=== PATIENT | female | born 1955 | race Caucasian/White ===

== ENCOUNTER 2020-09-09 13:24 | Inpatient (IN) | payer MEDICARE ==
[~2020-09-09] VITALS: Ht 157.5 cm; Wt 52.6 kg
[~2020-09-09 13:24] MED LIST: AVELOX400 MG PO; FLONASE0.05 MG/AC NS; LORTAB 5/500 501 TAB; SUDAFED30 MG PO
[2020-09-09] MEDS ORDERED: FOSAMAX5 MG PO (14:54)
[2020-09-09] MEDS ORDERED: OMEGA-3 1000 MG1 CAP PO (14:55)
[2020-09-09] MEDS ORDERED: VICODIN 5/300 PO (14:56)
[2020-09-09] MEDS ORDERED: LIPITOR 10MG10 MG PO (14:59)
[2020-09-09] MEDS ORDERED: ONE-A-DAY ESSE1 EACH PO (15:01)
[2020-09-09] MEDS ORDERED: CALCIUM CARBON650 M2 PO (15:03)
[2020-09-09] MEDS ORDERED: VITAMIN D31000 I1 PO (15:03)
[2020-09-09 15:06] VITALS: BP 105/56; PULSE 87; TEMP 98.5
[2020-09-09 17:11] LABS: COLLECTION METHOD CATHETER
[2020-09-09 17:15] LABS: MUCOUS Present /lpf; PH 5 (5-8); SQUAMOUS EPITHELIAL 0-2 /hpf; URINE APPEARANCE Clear; URINE BACTERIA Rare /hpf; URINE BILIRUBIN Negative (NEGATIVE); URINE BLOOD Negative (NEGATIVE); URINE COLOR Yellow; URINE GLUCOSE Negative (NEGATIVE); URINE KETONE Negative (NEGATIVE); URINE LEUKOCYTE ESTERASE Negative (NEGATIVE); URINE NITRATE Negative (NEGATIVE); URINE PROTEIN(semi-quant) Negative (NEGATIVE); URINE RBC 0-2 /hpf; URINE UROBILINOGEN Negative (NEGATIVE)
--- NOTE | 2020-09-09 17:20 | NUR ---
Patient admitted into room 324. Transfer from [facility]. Report from Pilar. Patient medicated with PRN morphine for left hip pain. Admission completed-5 page, med rec, inital. Hospitalist & ortho rounded, orders obtained. Beaulieu inserted per orders & Ua to lab. Scds ble, [place] to right leg. Ice pack on. Ivf per orders. EKG,Chest xray done. Tele on. Vitals stable. Will monitor.
[2020-09-09 17:31] LABS: PROTHROMBIN TIME 11.5 SECONDS (9.7-12.8)
--- NOTE | 2020-09-09 18:20 | NUR ---
patient of the phone talking, denies needs at this time. House & anesthesia made aware of surgery time for tmrw.
--- NOTE | 2020-09-09 18:47 | NUR ---
Pt complains of pain to left hip, 05/17. Medicated with Morphine 2mg IVP at this time.
[2020-09-09 19:12] VITALS: BP 140/81; PULSE 89; TEMP 98.8
--- NOTE | 2020-09-09 20:44 | NUR ---
Pt awake, talking on phone. Reports pain to left hip 05/17. HS med and Morphine 2mg IVP given at this time. Is alert and oriented. Consent for surgery is signed. Beaulieu to BSD with yellow urine. Ice pack to left hip, IVF to left AC infusing without redness or swelling. Eating jello at this time.
--- NOTE | 2020-09-09 22:34 | NUR ---
MEDICATED WITH MORPHINE 2MG IVP FOR PAIN 05/17.
[2020-09-09 23:24] VITALS: BP 116/54; PULSE 62; TEMP 98.6
[2020-09-10] VITALS (13 sets, daily range): BP systolic 85–113; BP diastolic 49–81; PULSE 75–99; TEMP 97.9–99.1
--- NOTE | 2020-09-10 00:05 | NUR ---
Medicated with Morphine 2mg IVP for pain to left hip 04/16. Is NPO now for surgery tomorrow.
--- NOTE | 2020-09-10 01:37 | NUR ---
Morphine 2mg IVP given for pain to left leg/thigh 04/16. Ice pack placed. IVF infusing without problem.
--- NOTE | 2020-09-10 03:28 | NUR ---
MEDICATED WITH MORPHINE 2MG IVP FOR PAIN TO LEFT THIGH, 04/16
--- NOTE | 2020-09-10 05:15 | NUR ---
MORPHINE 2MG IVP GIVEN FOR LEFT LEG PAIN 05/17.
[2020-09-10 06:05] LABS: BASO % 0.6 % (0.0-2.0); EOS # 0.2 (0.0-0.7); GRAN # 3.2 (1.4-6.5); HEMOGLOBIN 10.5 g/dl (12.5-16.0); LYMPH # 0.9 (1.2-3.4); LYMPH % 18.8 % (20.0-51.0); MEAN CELL VOLUME 88 fl (80.0-100.0); MEAN CORPUSCULAR HEMOGLOBIN 28 pg (27.0-31.0); MEAN CORPUSCULAR HGB CONC 32 g/dl (33.0-37.0); MEAN PLATELET VOLUME 9.6 fl (7.4-10.4); MONO # 0.7 (0.1-0.6); MONO % 13.4 % (1.7-9.3); PLATELET COUNT 179 K/mm3 (130-400); REDCELL DISTRIBUTION WIDTH-CV 13.2 % (11.5-14.5)
[2020-09-10 06:11] LABS: HEMATOCRIT 32.7 % (37.0-47.0)
[2020-09-10 06:18] LABS: CREATININE, serum 0.74 (0.52-1.25); POTASSIUM 3.2 mmol/L (3.4-5.0)
--- NOTE | 2020-09-10 06:45 | NUR ---
MEDICATED WITH MORPHINE 2MG IVP FOR PAIN.
--- NOTE | 2020-09-10 08:12 | NUR ---
Patient resting in bed. rounded. Order obtained. Increase in pain medication given, patient rating her pain 9/10. reports getting minmal sleep last night due to pain. Pain all in her left hip, dull constant pain. Cms intact. Potassium replacement started, her Mg lab normal. She is NPo, denies nausea. reports passing flatus, we did discuss side effect of pain medication being constipation. She understands. Vss, tele on. Will closely monitor
--- NOTE | 2020-09-10 10:55 | NUR ---
First visit from the custom shoemaker. No needs right now.
--- NOTE | 2020-09-10 11:00 | NUR ---
MERARY met with the patient to discuss discharge plan. The patient lives outside of [place] with her , Dick (ph#[phone]). She reports independence with ADLs and has crutches and a walker available at home. The patient's PCP is Dr. Angel Luis Grimes and she receives her medications from [facility]. She reports no difficulties obtaining her meds. The patient does not have a DPOA-HC in EMR, but she states that her and her are working on one. She state that she will be designating her . The patient has a right hip fracture. SW discussed possible post-acute rehab upon discharge. The patient states that she was very independent and active before the fall and is hopeful to return home with outpatient therapy. She states that she has had both knees replaced and has things set up at home. MERARY informed her of how PT/OT will work with her and make their recommendations after she has surgery. The patient verbalized understanding. The patient is to tentatively have surgery today. MERARY then contacted and reviewed the above information with the patient's , Dick. Dick is hopeful that the patient will be able to return home with outpatient therapy as well. SW to continue to follow.
--- NOTE | 2020-09-10 11:23 | NUR ---
Patient to the Or with Sukh covarrubias. Patient prepped for surgery With Jose alston. report called to Marvin with anesthesia, he is aware of K+ level & 20 MEQ so far replaced. Vss. Pain managed at this time
--- NOTE | 2020-09-10 19:47 | NUR ---
Patient resting in bed. She has done well post op. Tele on. Vss, blood pressures slightly low, but khloe reports this is normal for her post op with prior surgery. Block/spinal has worn off. Pain elevated, she also reported a headache. [place] per orders. She denies nausea, but minimal interest in food. Beaulieu to DD with adequate output. Teds & Scds Ble. Left hip dressing bulky, clean & dry. Ice pack on. Cms intact. Ivf per orders & finishing k+ replacement. Patient has visitied with her family on the phone. Report to Alayna Night nurse
--- NOTE | 2020-09-10 21:36 | NUR ---
PT IN BED. IS ALERT AND ORIENTED X4. HAS BULKY DRSG TO LEFT HIP. SPINAL BLOCK HAS WORN OFF. HAS IVF TO LEFT AC, INFUSING WITHOUT PROBLEM. MEDRANO TO BSD WITH LIGHT YELLOW URINE. TAKES HS MEDS INCLUDING OXYCODONE 5MG FOR LEFT LEG PAIN 04/16.
--- NOTE | 2020-09-10 23:03 | NUR ---
COMPLAINS OF LEFT LEG PAIN, MEDICATED WITH NORCO 2 TABS PO AT THIS TIME.
--- NOTE | 2020-09-11 01:10 | NUR ---
PT THINKS SHE NEEDS TO HAVE A BM. PLACED ON BEDPAN AND PASSED GAS ONLY. MEDRANO LEAKING AND 5CC MORE ADDED TO BALLOON AFTER ADVANCING. NO LONGER LEAKING. GOOD URINE OUTPUT. MEDICATED WITH OXYCODONE 10MG PO AT THIS TIME FOR PAIN 03/16.
[2020-09-11 01:13] VITALS: BP 98/53
[2020-09-11 03:54] VITALS: BP 93/53; PULSE 68; TEMP 97.9
--- NOTE | 2020-09-11 04:00 | NUR ---
RATES PAIN 5/10. REPORTS SHE DOESN'T NEED ANY PAIN MEDS AT THIS TIME. HAS BEEN SLEEPING OFF AND ON.
--- NOTE | 2020-09-11 05:36 | NUR ---
MEDICATED WITH NORCO 2 TABS AT THIS TIME FOR PAIN 6/10 TO LEFT LEG.
[2020-09-11 08:00] VITALS: BP 106/57; PULSE 86; TEMP 98.1
--- NOTE | 2020-09-11 08:00 | NUR ---
Patient in bed resting. Alert and oriented x 3. Assessment complete. Occlusive dressing to left hip. Pedal pulses intact. SCD to RLE. Fluids infusing per orders. Patient states she does not have much of an appetite today. Beaulieu to DD with clear yellow urine present. Denies further needs at this time.
[2020-09-11 09:29] LABS: HEMATOCRIT 28.7 % (37.0-47.0); HEMOGLOBIN 9.2 g/dl (12.5-16.0)
[2020-09-11 09:34] LABS: CALCIUM 8.3 mg/dL (8.4-10.2); CREATININE, serum 0.72 (0.52-1.25)
[2020-09-11 12:04] VITALS: BP 96/43; PULSE 77; TEMP 98.5
--- NOTE | 2020-09-11 14:40 | NUR ---
SW met with the patient review d/c plan and to discuss therapies recommendation of home health vs outpatient therapy. The patient reports that she feels well getting around and feels comfortable returning back home with her . SW discussed the differences between home health vs outpatient therapy. The patient reports that she would prefer outpatient therapy at [facility] and would prefer a late morning appointment. SW to schedule an appointment. SW contacted and updated the patient's , Dick, on the above information. Dick is also agreeable to outpatient therapy and states that he can get her to her appointments.
[2020-09-11 16:00] VITALS: BP 106/47; PULSE 78; TEMP 98.4
--- NOTE | 2020-09-11 19:09 | NUR ---
Patient has done well throughout the day. Up to sandblast carver throughout most of the day. Beaulieu discontinued this afternoon per orders. Patient has requested pain meds for LLE pain throughout the day, medications given per orders. Patient ambulated to lala this afternoon with SBA and walker, patient TTWB to LLE. Denies further needs at this time. Reported off to night shift manager.
--- NOTE | 2020-09-11 20:30 | NUR ---
Pt. sitting up in chair at this time. Pt. is A&OX3, assessment complete. Dressing to lt. hip cdi. Pt. reports pain to hip at a 4 on pain scale. Pt. denies further needs, call light within reach.
[2020-09-11 20:56] VITALS: BP 114/63; PULSE 84; TEMP 98.5
[2020-09-12 00:04] VITALS: BP 100/52; PULSE 78; TEMP 98.5
[2020-09-12 03:51] VITALS: BP 94/47; PULSE 80; TEMP 98.5
[2020-09-12 07:48] LABS: BASO % 0.5 % (0.0-2.0); EOS # 0.3 (0.0-0.7); EOS % 5.1 % (0-4.0); GRAN # 4.7 (1.4-6.5); LYMPH # 0.7 (1.2-3.4); LYMPH % 11.1 % (20.0-51.0); MEAN CELL VOLUME 88 fl (80.0-100.0); MEAN CORPUSCULAR HGB CONC 32 g/dl (33.0-37.0); MEAN PLATELET VOLUME 10.1 fl (7.4-10.4); MONO # 0.6 (0.1-0.6); PLATELET COUNT 191 K/mm3 (130-400); RED BLOOD COUNT 3.11 M/mm3 (4.10-5.30); REDCELL DISTRIBUTION WIDTH-CV 13.1 % (11.5-14.5)
[2020-09-12 07:53] VITALS: BP 117/61; PULSE 89; TEMP 98.7
[2020-09-12 08:03] LABS: CALCIUM 8.2 mg/dL (8.4-10.2); CREATININE, serum 0.75 (0.52-1.25); POTASSIUM 4.1 mmol/L (3.4-5.0)
[2020-09-12 08:30] LABS: HEMATOCRIT 27.3 % (37.0-47.0); HEMOGLOBIN 8.6 g/dl (12.5-16.0); MEAN CORPUSCULAR HEMOGLOBIN 28 pg (27.0-31.0)
[2020-09-12] MEDS ORDERED: ASPI325T6 PO (08:48)
[2020-09-12] MEDS ORDERED: NORCO 325 MG-51 TAB PO (08:50)
[2020-09-12] MEDS ORDERED: SENEXON-S 50-81 EACH PO (08:51)
[2020-09-12] MEDS ORDERED: VITAMIN C500 MG PO (08:51)
--- NOTE | 2020-09-12 08:58 | NUR ---
PT OUT TO [facility] WITH THERAPY. ASSESSMENTS COMPLETE. PAIN WELL CONTROLLED WITH PO PAIN MEDICATIONS. PT PLANS ON DISCHARGE LATER TODAY. DRESSINGS TO LEFT HIP CDI.
--- NOTE | 2020-09-12 09:04 | NUR ---
PT OUT TO [facility] WITH THERAPY USING CRUTCHES AND WALKER. PLAN ON DISCHARGE LATER TODAY.
[2020-09-12] MEDS ORDERED: QUESTRAN4 GM/9 GM PO (09:26)
--- NOTE | 2020-09-12 10:57 | NUR ---
MERARY attended clinical rounds. Ortho wants the patient to hold off on therapy for now. The patient is ready to discharge back home with her today, 09/12. MERARY then followed up with the patient. The patient states that she has no concerns about returning home with her . She states that she does have crutches at home that she can use. MERARY presented and read the IM form outloud to the patient. The patient verbalized understanding and gave MERARY approval to sign the form on her behalf. MERARY provided her with a copy. No additional needs at this time.
[2020-09-12 11:02] VITALS: BP 90/54; PULSE 91; TEMP 99
--- NOTE | 2020-09-12 14:53 | NUR ---
DISCHARGE INSTRUCTIONS PROVIDED TO PT . QUESTIONS SOLICITED AND ANSWERED. DRESSING CHANGE REVIEWED AND PT VERBLAIZED UNDERSTANDING. PT TAKEN TO ED ENTRANCE BY WHEEL CHAIR.
== END 2020-09-12 14:30 | disposition home or self-care (01) | DRG 482 ==
LOC: MEDICAL 13:24 → SURG 13:46
PROVIDERS: Orthopaedic Surgery; Physician Assistant; ADMIT Internal Medicine
PROC: 0QS736Z Reposition Left Upper Femur with Intramedullary Internal Fixation Device, Percutaneous Approach (ICD-10-PCS; principal; 2020-09-10 12:00)
DX: S72.22XA Displaced subtrochanteric fracture of left femur, initial encounter for closed fracture (principal); M19.90 Unspecified osteoarthritis, unspecified site; M81.0 Age-related osteoporosis without current pathological fracture; E78.5 Hyperlipidemia, unspecified; E87.6 Hypokalemia; Z96.653 Presence of artificial knee joint, bilateral; D64.9 Anemia, unspecified; I95.9 Hypotension, unspecified; R19.7 Diarrhea, unspecified; W11.XXXA Fall on and from ladder, initial encounter
CPT/HCPCS: 99222-AI; 99232-AI; 99239; A9284; C1713; C1769; J0690; J1100; J2250; J2270; J2405; J2704; J2795; J3480